=== PATIENT | female | born 1950 | race Caucasian/White ===

== ENCOUNTER 2016-06-20 06:59 | Day surgery (SDC) | payer MEDICARE ==
[2016-06-17 12:01] LABS: APPEARANCE,URINE CLEAR; BILIRUBIN,URINE NEGATIVE (NEGATIVE); GLUCOSE, URINE NEGATIVE (NEGATIVE); KETONES,URINE NEGATIVE (NEGATIVE); LEUKOCYTE ESTERASE,URINE TRACE (NEGATIVE); NITRITE,URINE NEGATIVE (NEGATIVE); PROTEIN,URINE NEGATIVE (NEGATIVE); URINE SPECIFIC GRAVITY 1.009; UROBILINOGEN,URINE NEGATIVE mg/dL (<2.0)
[2016-06-17 12:13] LABS: HEMATOCRIT 40.9 % (36.0-47.0); HEMOGLOBIN 13.1 g/dL (12.0-15.5); HGB HCT DIFFERENCE -1.6; MEAN CORPUSCULAR HEMOGLOBIN 25.7 pg (27.0-33.4); MEAN CORPUSCULAR HGB CONC 32.1 g/dL (32.0-36.0); MEAN CORPUSCULAR VOLUME 80 fl (80-97); RED BLOOD COUNT 5.12 10^6/uL (3.72-5.28); RED CELL DISTRIBUTION WIDTH 14.7 % (11.5-14.0); WHITE BLOOD COUNT 7.5 10^3/uL (4.0-10.5)
--- NOTE | 2016-06-17 15:50 | EKG REPORT ---
SEVERITY:- ABNORMAL ECG - SINUS RHYTHM NONSPECIFIC INTRAVENTRICULAR CONDUCTION DELAY LEFT VENTRICULAR HYPERTROPHY : Confirmed by: Juan M Day 17-Jun-2016 15:49:54
[~2016-06-20 06:59] MED LIST: CEFAZOLIN SODIUM 1 GM in DEXTROSE 5%-WATER 50 ML IV PRN; IBUPROFEN 800 MG TABLET PO PRN; LACTATED RINGERS 1000 ML IV PRN; LIDOCAINE 0.5% INJ-PF (5 MG/ML) 50 ML SDV SUBCUT PRN; OXYCODONE-ACETAMINOPHEN 5-325 MG TABLET PO PRN
[2016-06-20] MEDS ORDERED: FENTANYL CITRATE INJ/PF 100 MCG/2 ML AMPUL ONE ×2 (08:12→10:02)
[2016-06-20] MEDS ORDERED: MIDAZOLAM 2 MG/2 ML INJ ONE (08:12)
[2016-06-20] MEDS ORDERED: PROPOFOL INJ 200 MG/20 ML VIAL IV ONE (08:13)
[2016-06-20] MEDS ORDERED: EPHEDRINE SULFATE INJ 50 MG/1 ML AMPULE ONE (08:13)
[2016-06-20] MEDS ORDERED: DIPHENHYDRAMINE HCL 50 MG/ML VIAL IV PRN (09:22)
[2016-06-20] MEDS ORDERED: MORPHINE SULFATE 10 MG/ML INJ IV PRN (09:22)
[2016-06-20] MEDS ORDERED: PROMETHAZINE HCL INJ 25 MG/1 ML VIAL IV PRN ×2 (09:22)
[2016-06-20] MEDS ORDERED: OXYCODONE-ACETAMINOPHEN 5-325 MG TABLET PO PRN ×4 (09:22→10:08)
[2016-06-20] MEDS ORDERED: FENTANYL CITRATE INJ/PF 100 MCG/2 ML AMPUL IV PRN ×3 (09:22)
[2016-06-20] MEDS ORDERED: MEPERIDINE HCL/PF INJ 25 MG/1 ML DISP.SYRIN IV PRN (09:22)
[2016-06-20] MEDS ORDERED: IBUPROFEN 800 MG TABLET PO PRN (10:08)
--- NOTE | 2016-06-20 10:58 | OPERATIVE REPORT E ---
Operative Report NAME: SHAUN RAI : 1950 AGE: 65Y DATE OF SURGERY: 06/20/2016 ROOM: PREOPERATIVE DIAGNOSIS: Pelvic pain, thickened endometrial stripe. POSTOPERATIVE DIAGNOSES: 1. Pelvic pain, thickened endometrial stripe. 2. Endometrial polyp. OPERATION: Hysteroscope with MyoSure. SURGEON: TATIANNA PARDO M.D. ANESTHESIA: Dr. *------* with general. FINDINGS: A large elongated endometrial polyp that was benign in appearance, extruding through the length of the endometrial canal and somewhat down the cervical canal. The patient had a uterovaginal prolapse of approximately grade 3 when relaxed. Several external hemorrhoids were present around the rectum. COMPLICATIONS: None. ESTIMATED BLOOD LOSS: About 10 mL. SPECIMENS REMOVED: Endometrial curettings. PROCEDURE IN DETAIL: Patient was taken to the operating room, prepared and draped in the normal sterile fashion in the dorsal lithotomy position under sterile conditions. An in-and-out catheter was performed with approximately 100 mL of clear urine obtained. The prolapse was noted at the beginning of the case. A sterile speculum was placed into the vagina and the cervix was prepped with Betadine and grasped on the anterior lip with a single-tooth tenaculum. The uterus was then sounded for approximately 6.5 cm, and the cervix was then dilated to 7 mm, and the MyoSure hysteroscope was introduced with the above findings noted. The MyoSure was then introduced through the scope and the MyoSure was used to remove the endometrial polyp as well as get a good endometrial sampling of the remaining endometrium. There was no fluid deficit afterwards and actually there was a positive 300 fluid return rather than a deficit. The MyoSure was completed until at least 90 percent of the polyp was removed at the base, and the specimen was passed off the field. The MyoSure hysteroscope was removed without difficulty. All instruments were removed from patient's vagina. Patient tolerated procedure well. Sponge, lap and needle counts were correct x2, and the patient was taken to recovery in stable condition. DICTATING PHYSICIAN: TATIANNA PARDO M.D. [id number] PHY#: [id number] ID: [id number] JOB#: [id number] ACCT: [id number] cc:TATIANNA PARDO M.D. >
[2016-06-20] MEDS ORDERED: MORPHINE SULFATE 10 MG/ML INJ IM PRN (11:00)
[2016-06-20 12:00] VITALS: BP 149/83
[2016-06-20] MEDS ORDERED: LIDOCAINE 2% INJ-PF (20 MG/ML) 10 ML AMPUL ONE (12:44)
[2016-06-20] MEDS ORDERED: METOCLOPRAMIDE HCL INJ/PF 10 MG/2 ML SDV ONE (12:44)
[2016-06-20] MEDS ORDERED: DEXAMETHASONE SOD PHOSPHATE INJ 4 MG/1 ML VIAL ONE (12:44)
[2016-06-20] MEDS ORDERED: ONDANSETRON HCL INJ/PF 4 MG/2 ML SDV ONE (12:44)
[2016-06-20] MEDS ORDERED: SUCCINYLCHOLINE CHLORIDE INJ 200 MG/10 ML VIAL ONE (12:44)
== END 2016-06-20 12:00 | disposition home or self-care (01) ==
LOC: OROUT 06:59
PROVIDERS: ATTEND Obstetrics & Gynecology
PROC: 0UB98ZX Excision of Uterus, Via Natural or Artificial Opening Endoscopic, Diagnostic (ICD-10-PCS; principal; 2016-06-20 09:00)
DX: N84.0 Polyp of corpus uteri (principal); N81.4 Uterovaginal prolapse, unspecified; K44.9 Diaphragmatic hernia without obstruction or gangrene; R10.2 Pelvic and perineal pain; Z79.899 Other long term (current) drug therapy
CPT/HCPCS: 93005; 36415 ×2; 84132; 85027; 81001; 88305 ×2; 93010; 58558; J2250; J0690; A9270; J1100; J3490 ×2; J3010; J2765; J0330; J2405; J2704; 952

== ENCOUNTER → 2016-11-22 | Day surgery (SDC) | payer MEDICARE ==
[2016-11-21 10:51] LABS: HEMATOCRIT 39.6 % (36.0-47.0); HEMOGLOBIN 13.4 g/dL (12.0-15.5); HGB HCT DIFFERENCE 0.6; MEAN CORPUSCULAR HEMOGLOBIN 26.9 pg (27.0-33.4); MEAN CORPUSCULAR HGB CONC 33.8 g/dL (32.0-36.0); MEAN CORPUSCULAR VOLUME 80 fl (80-97); RED BLOOD COUNT 4.97 10^6/uL (3.72-5.28); RED CELL DISTRIBUTION WIDTH 13.7 % (11.5-14.0); WHITE BLOOD COUNT 7.9 10^3/uL (4.0-10.5)
[2016-11-21 10:59] LABS: APPEARANCE,URINE CLEAR; BILIRUBIN,URINE NEGATIVE (NEGATIVE); GLUCOSE, URINE NEGATIVE (NEGATIVE); KETONES,URINE NEGATIVE (NEGATIVE); LEUKOCYTE ESTERASE,URINE MODERATE (NEGATIVE); NITRITE,URINE NEGATIVE (NEGATIVE); PROTEIN,URINE NEGATIVE (NEGATIVE); URINE SPECIFIC GRAVITY 1.016; UROBILINOGEN,URINE NEGATIVE mg/dL (<2.0)
[2016-11-21 11:03] LABS: MAGNESIUM 2.1 mg/dL (1.6-2.3); PHOSPHORUS 3.8 mg/dL (2.5-4.5)
[2016-11-21 11:04] LABS: ALANINE AMINOTRANSFERASE 35 U/L (9-52); ALBUMIN 4.2 g/dL (3.5-5.0); ALKALINE PHOSPHATASE 112 U/L (38-126); ANION GAP 12 (5-19); ASPARTATE AMINO TRANSFERASE 23 U/L (14-36); BILIRUBIN,DIRECT 0.3 mg/dL (0.0-0.4); BILIRUBIN,TOTAL 0.5 mg/dL (0.2-1.3); BLOOD UREA NITROGEN 14 mg/dL (7-20); CALCIUM 9.9 mg/dL (8.4-10.2); CARBON DIOXIDE 29 mmol/L (22-30); CHLORIDE 102 mmol/L (98-107); CREATININE RESULT 0.82 mg/dL (0.52-1.25); GLUCOSE 113 mg/dL (75-110); POTASSIUM 4.1 mmol/L (3.6-5.0); SODIUM 142.9 mmol/L (137-145); TOTAL PROTEIN 7.5 g/dL (6.3-8.2)
--- NOTE | 2016-11-21 21:55 | EKG REPORT ---
SEVERITY:- ABNORMAL ECG - SINUS RHYTHM VENTRICULAR BIGEMINY NONSPECIFIC INTRAVENTRICULAR CONDUCTION DELAY LEFT VENTRICULAR HYPERTROPHY : Confirmed by: Juan M Day 21-Nov-2016 21:54:36
[~2016-11-22] MED LIST changes: +CEFAZOLIN 1 GM/D5W RTU 1 GM/50 ML RTUPB IV PRN; -CEFAZOLIN SODIUM 1 GM in DEXTROSE 5%-WATER 50 ML IV PRN; -IBUPROFEN 800 MG TABLET PO PRN; -OXYCODONE-ACETAMINOPHEN 5-325 MG TABLET PO PRN
--- NOTE | 2016-11-22 08:15 | RADIOLOGY REPORT (SQ) ---
EXAM DESCRIPTION: CHEST SINGLE VIEW COMPLETED DATE/TIME: 11/22/2016 7:50 am REASON FOR STUDY: pre-operative COMPARISON: 08/25/2013 EXAM PARAMETERS: NUMBER OF VIEWS: One view. TECHNIQUE: Single frontal radiographic view of the chest acquired. RADIATION DOSE: NA LIMITATIONS: None. FINDINGS: LUNGS AND PLEURA: No opacities, masses or pneumothorax. No pleural effusion. MEDIASTINUM AND HILAR STRUCTURES: No masses. Contour normal. HEART AND VASCULAR STRUCTURES: Heart normal in size. Normal vasculature. BONES: No acute findings. HARDWARE: None in the chest. OTHER: No other significant finding. IMPRESSION: NO ACUTE RADIOGRAPHIC FINDING IN THE CHEST. TECHNICAL DOCUMENTATION: JOB ID: [id number]
[2016-11-22 08:35] VITALS: BP 156/95
--- NOTE | 2016-11-22 20:56 | EKG REPORT ---
SEVERITY:- ABNORMAL ECG - SINUS RHYTHM LEFT VENTRICULAR HYPERTROPHY : Confirmed by: Juan M Day 22-Nov-2016 20:56:16
--- NOTE | 2016-11-22 21:14 | CONSULTATION REPORT E ---
Consultation Report NAME: SHAUN RAI : 1950 AGE: 66Y DATE: 11/22/2016 TO: GUILLE NOVAK M.D. FROM: Requesting Physician NOTE: The patient's surgery was canceled and, hence, we will make this as an observation consult. REASON FOR CONSULTATION: Patient with frequent PVCs, asymptomatic, for cardiac preprocedure examination for risk assessment for surgery under general anesthesia. HISTORY OF PRESENT ILLNESS: The patient is a pleasant 66-year-old female with known history of hypertension and hyperlipidemia, who is brought in for elective laparoscopic hysterectomy. The patient on the preop EKG was noted to have frequent PVCs. The patient is asymptomatic from this. She has no history of dizziness, palpitations, or syncope or near syncope. There is no history of congestive heart failure, no history of chest pain or discomfort. There is no PND, orthopnea or leg edema. The patient states she is fairly quite active. PAST MEDICAL HISTORY: Positive for history of hypertension. There is no history of congestive heart failure, no history of coronary artery disease, anginal symptoms or MN. There is no history of PND, orthopnea or leg edema. There is no history of asthma or COPD. There is no history of sleep apnea, no history of pulmonary embolism. There is no history of diabetes mellitus, no history of thyroid disease. The patient does have a hyperlipidemia. There is no history of chronic kidney disease. There is no history of TIA or CVA. There is no history of anxiety and depression. ALLERGIES: LOTREL which contains amlodipine and benazepril, the allergy being in the form of dry cough; hence, most likely the patient is allergic to BENAZEPRIL (WALLY inhibitor) causing dry cough. FAMILY HISTORY: Positive for congestive heart failure in her mother. There is no history of coronary artery disease. DISPOSITION: The patient is a FULL CODE. Her son is her surrogate healthcare decision maker. SOCIAL HISTORY: The patient does not smoke. There is no history of EtOH abuse. PAST SURGICAL HISTORY: Positive for history of cholecystectomy in the remote past. HOME MEDICATIONS: 1. Simvastatin 20 mg p.o. nightly. 2. Aspirin 325 mg p.o. daily. 3. Losartan/hydrochlorothiazide 100/12.5 once daily. 4. Ranitidine 150 mg p.o. b.i.d. REVIEW OF SYSTEMS: CONSTITUTIONAL: Denies any fever, chills or rigors. There is no fatigue or weakness. HEENT: Head: Denies any dizziness and head injury or headaches. Eyes: No history of amblyopia or diplopia. No history of amaurosis fugax. Ears: No history of hearing loss, no history of tinnitus, no history of recurrent ear infections, no vertigo. Nose: No history of hay fever. No history of nosebleeds. No history of nasal polyps. Mouth: No history of altered taste sensation, no history of ulcers in the mouth, no bleeding from the gums. Throat: There is no odynophagia or dysphagia, no history of recurrent sore throats. SKIN: There is no history of psoriasis. No history of yellowish discoloration of the skin. No history of skin cancer. No history of psoriasis. NECK: No painful or painless neck swelling, no goiter, no symptoms of C-spine arthritis. LUNGS: No history of asthma or COPD. No history of pulmonary embolism. No history of hemoptysis or pleuritic chest pain. No history of cough or wheezing or sputum production. No history of sleep apnea. CARDIAC: History of hypertension, well controlled as per patient. No history of coronary artery disease. No history of MN or anginal symptoms. No history of congestive heart failure. No history of leg edema. No history of palpitations although her EKG yesterday shows PVCs although there are no PVCs on her EKG today. She has no history of near syncope, dizziness or palpitations. No history of syncope. No history of sudden . No history of PND, orthopnea or leg edema. GASTROINTESTINAL: History of GERD controlled with ranitidine. No history of GI bleed. No history of altered bowel movements. No history of fatty food intolerance. No history of cirrhosis of the liver. No history of jaundice. No abdominal pain. GENITOURINARY: History of prolapse of the uterus. Patient for laparoscopic hysterectomy. RENAL: No history of chronic kidney disease. No history of hematuria, polyuria or dysuria. No symptoms of UTI. ENDOCRINE: No history of diabetes mellitus type. No history of thyroid disease. No history of polydipsia or polyuria. No history of heat or cold intolerance. No history of hirsutism. No history of excessive sweating. CENTRAL NERVOUS SYSTEM: No history of TIA or CVA. No history of headaches, migraines or seizures. No history of gait imbalance. PSYCHIATRIC: No history of anxiety or depression. No history of suicidal ideation. No history of homicidal ideation. VASCULAR: No history of calf or buttock claudication. No history of DVT. MUSCULOSKELETAL: Denies arthritis or collagen vascular disease. HEMATOLOGICAL: No history of bleeding diathesis. No history of clotting disorders. PHYSICAL EXAMINATION: GENERAL: Patient is mildly obese in no acute distress. She is well groomed. VITAL SIGNS: She is afebrile with a temperature of 98.3 degrees Fahrenheit. Pulse is 81 beats per minute. Blood pressure is 156/95, respirations 16 per minute, 02 sats are 98% on room air. HEENT: Head is atraumatic, normocephalic. Eyes: Pupils are equal, round, regular, reactive to light and accommodation. Extraocular movements are normal. There is no conjunctival pallor. There is no scleral icterus. Ears: Tympanic membranes are intact. External auditory canals are clear. Nose: There is no deviated nasal septum. There is no inflammation of the nasal mucous membranes. There are no nasal polyps. Mouth: Mucous membranes of the mouth are moist. Tongue is moist. There are no ulcers. There is no bleeding from the gums. There are no ulcers in the mouth. Throat: There is no redness of the oropharynx. There are no exudates. SKIN: There are no skin rashes. There is no petechia or ecchymosis. There are no skin lesions. NECK: Supple. There is no JVD. There is no lymphadenopathy. Carotids are equal. There is no bruit. There is no goiter. Trachea is central. LUNGS: Clear to auscultation and percussion. There is no chest wall tenderness. HEART: S1 and S2 are heard. There is no S3 gallop. There is no S4 gallop. There is a systolic murmur in the left sternal border and the apex. There is no rub. ABDOMEN: Soft, slightly obese, nontender. There is no hepatosplenomegaly. Bowel sounds are well heard. There are no tender areas or masses. There is rebound, guarding or rigidity. EXTREMITIES: Femorals are slightly deep. Femorals are slightly diminished. There are no femoral bruits. Leg pulses are well felt. There is no pedal edema. There is no DVT or cellulitis. There is no cyanosis or clubbing. There is no calf tenderness. CENTRAL NERVOUS SYSTEM: The patient is conscious, awake, alert, oriented x3 with no focal deficits. PSYCHIATRIC: The patient's judgment and insight are intact. Her affect is normal. DIAGNOSTIC TEST RESULTS: The patient's white count yesterday was 7900, hemoglobin was 13.4, hematocrit is 39.6, and the platelet count is 319,000. The patient's sodium is 142.9, potassium 4.1, chloride 102, CO2 is 29. The patient's BUN is 14, creatinine is 0.82, GFR is greater than 60, glucose is 113, her calcium is 9.9. Her liver function tests are normal. Her phosphorus was 3.8, her magnesium is 2.1, albumin is 4.2, total protein is 7.5. Her EKG shows done yesterday shows sinus rhythm, ventricular bigeminy, and left ventricular hypertrophy. Her EKG done today shows sinus rhythm and LVH. No acute changes. IMPRESSION: 1. Cardiac arrhythmia/PVCs, asymptomatic. The patient is low risk in view of lack of anginal symptoms, lack of symptoms, lack of sudden and lack of symptoms suggestive of congestive heart failure and presently the patient does not appear to be in heart failure by physical exam. 2. Hypertension. 3. Hyperlipidemia. 4. Patient for hysterectomy under general anesthesia for prolapse of the uterus. 5. Preoperative cardiovascular risk assessment. RECOMMENDATIONS: The patient from the cardiac [id number] would be a low (acceptable) risk for this surgery under general anesthesia. Would monitor the patient postop. Will follow the patient with you. Discussed with the attending physician on the case, that is, Dr. Smith. Thanking you. DICTATING PHYSICIAN: GUILLE NOVAK M.D. [id number] PHY#: [id number] ID: [id number] JOB#: [id number] ACCT: [id number] cc:GUILLE NOVAK M.D. >
== END ==
LOC: OROUT 07:18
PROVIDERS: ATTEND Obstetrics & Gynecology
DX: Z01.810 Encounter for preprocedural cardiovascular examination (principal); Z53.8 Procedure and treatment not carried out for other reasons; I49.3 Ventricular premature depolarization; I10 Essential (primary) hypertension; E87.5 Hyperkalemia; Z88.8 Allergy status to other drugs, medicaments and biological substances; Z82.49 Family history of ischemic heart disease and other diseases of the circulatory system; Z79.82 Long term (current) use of aspirin; Z79.899 Other long term (current) drug therapy; K21.9 Gastro-esophageal reflux disease without esophagitis
CPT/HCPCS: 36415; 71010; 80053; 81001; 83735; 84100; 85027; 86850; 86900; 86901; 93005; 93010

== ENCOUNTER → 2016-12-04 | Outpatient (CLI) | payer MEDICARE ==
[~2016-12-04] MED LIST changes: -CEFAZOLIN 1 GM/D5W RTU 1 GM/50 ML RTUPB IV PRN; -LACTATED RINGERS 1000 ML IV PRN; -LIDOCAINE 0.5% INJ-PF (5 MG/ML) 50 ML SDV SUBCUT PRN; +REGADENOSON INJ 0.4 MG/5 ML DISP.SYRIN IV ONE
--- NOTE | 2016-12-04 20:06 | DRAGON STRESS TEST REPORT ---
Intravenous Lexiscan Cardiolite stress test using single photon emmision comput. Erized tomography. Date of procedure: 12/04/2016. Ordering Provider: Dr. Sammi Villafana. Patient's status: O utpatient. Indicat ion: Abnormal EKG., PVCs., And preoperative cardiac risk assessment.. Coronary risk factors: Age, hypertension, and dyslipidemia. Resting EKG: S inus Rhythm.PVC's. Stress EKG: No changes of ischemia. The patient had no chest pain or discomfort, there are no arrhythmias seen Reason for termination: Protocol. Conclusions: Normal EKG and hemodynamic response to IV Lexiscan. Nuclear data: At rest the patient was given 12.38 1.01 millicuries of technetium 99m sestamibi injected intravenously. As per protocol rest non gated SPECT images were obtained. Subsequently the patient was given intravenous Lexiscan at a dose of 0.4 mg in 5 mL intravenously, followed by flush with normal saline. Subsequently the stress dose of 36.7 millicuries of technetium 99m sestamibi was injected intravenously. As per protocol stress gated images were obtained. Nuclear interpretation: Review of images showed that all segments of the myocardium had normal perfusion at rest, and normal perfusion post stress with IV Lexiscan. All segments of the myocardium had normal motion, contraction, and thickening by gated study. T. I D. ratio was normal at . Computer read rest, and stress left ventricular ejection fraction were 62 %, and 59 %, respectively. Conclusion: 1. There is no scintigraphic evidence of Lexiscan induced myocardial ischemia. 2. There is no scintigraphic evidence of myocardial infarction/scar. Recommendations: Aggressive risk factor modification, and treating the underlying co- morbidities. MTDD
== END ==
LOC: RAD 07:05
PROVIDERS: ATTEND Specialist
DX: I49.9 Cardiac arrhythmia, unspecified (principal)
CPT/HCPCS: 93017; 78452; A9500; J2785; Q9969

== ENCOUNTER → 2016-12-05 | Outpatient (CLI) | payer MEDICARE ==
--- NOTE | 2016-12-05 13:29 | XCELERA REPORT ---
[address] [address] Transthoracic Echocardiogram Report Name: SHAUN RAI Age: 66 yrs Gender: Female : 1950 Patient Status: Preadmit Patient Location: Study Date: 12/05/2016 10:09 AM Height: 63 in Weight: 170 lb BSA: 1.8 m2 Procedure: A two-dimensional transthoracic echocardiogram with color flow and Doppler was performed. Study Quality: Fair. Reason For Study: CARDIAC ARRHYTHMIA / PRE_OPERATIVE CARDIAC EXAM History: CARDIAC ARRHYTHMIA / PRE_OPERATIVE CARDIAC EXAM. Ordering Physician: SAMMI NOVAK Performed By: Nika Jay Interpretation Summary The left ventricle is normal in size. There is normal left ventricular wall thickness. Left ventricular systolic function is normal. LV EF is 80% Doppler measurements suggest impaired left ventricular relaxation, which is associated with grade I/IV or mild diastolic dysfunction The left ventricular wall motion is normal. The right ventricle is normal in size and function. The right atrium is normal. The left atrial size is normal. There is no evidence of mitral valve prolapse. There is no mitral valve stenosis. There is a mild amount of mitral regurgitation There is no aortic valve stenosis There is no LVOT obstruction. No aortic regurgitation is present. There is no tricuspid stenosis. There is a trace amount of tricuspid regurgitation Right ventricular systolic pressure is normal. RVSP s 29 mm of Hg , with RA mean of 5. There is a trace amount of pulmonic regurgitation There is no pulmonic valvular stenosis. There is no pericardial effusion. MMode/2D Measurements \T\ Calculations RVDd: 2.2 cm LVIDd: 4.9 cm FS: 28.9 % Ao root diam: 2.7 cm IVSd: 0.95 cm LVIDs: 3.5 cm EDV(Teich): 111.9 ml LVPWd: 0.94 cmESV(Teich): 50.0 ml Ao root area: 5.6 cm2 EF(Teich): 55.3 % LA dimension: 3.4 cm LVOT diam: 1.7 cm LVOT area: 2.3 cm2 Doppler Measurements \T\ Calculations MV E max mallory: MV P1/2t max mallory: Ao V2 max: LV V1 max P.7 cm/sec 59.7 cm/sec 178.0 cm/sec 5.9 mmHg MV A max mallory: MV P1/2t: 53.9 msec Ao max PG: LV V1 max: 85.9 cm/sec MVA(P1/2t): 4.1 cm2 12.7 mmHg 121.5 cm/sec MV E/A: 0.70 MV dec slope: ABDI(V,D): 1.6 cm2 324.3 cm/sec2 PA V2 max: PI end-d mallory: TR max mallory: 92.8 cm/sec 114.0 cm/sec 244.3 cm/sec PA max PG: TR max P.4 mmHg 23.9 mmHg Left Ventricle The left ventricle is normal in size. There is normal left ventricular wall thickness. Left ventricular systolic function is normal. LV EF is 80%. Doppler measurements suggest impaired left ventricular relaxation, which is associated with grade I/IV or mild diastolic dysfunction. The left ventricular wall motion is normal. There is no thrombus. Right Ventricle The right ventricle is normal in size and function. Atria The right atrium is normal. The left atrial size is normal. Mitral Valve There is no evidence of mitral valve prolapse. There is no vegetation seen on the mitral valve. There is no mitral valve stenosis. There is a mild amount of mitral regurgitation. Aortic Valve The aortic valve is trileaflet. The aortic valve opens well. There is no aortic valvular vegetation. There is no aortic valve stenosis. There is no LVOT obstruction. No aortic regurgitation is present. Tricuspid Valve There is no tricuspid stenosis. There is a trace amount of tricuspid regurgitation. Right ventricular systolic pressure is normal. RVSP s 29 mm of Hg , with RA mean of 5. Pulmonic Valve There is no pulmonic valvular stenosis. There is a trace amount of pulmonic regurgitation. Great Vessels The aortic root is normal size. Effusions There is no pericardial effusion. : SAMMI NOVAK > Sammi Novak
== END ==
LOC: SP 09:58
PROVIDERS: ATTEND Specialist
DX: I49.9 Cardiac arrhythmia, unspecified (principal)
CPT/HCPCS: 93306

== ENCOUNTER 2017-01-30 05:27 | Day surgery (SDC) | payer MEDICARE ==
[2017-01-21 11:05] LABS: HEMATOCRIT 39.1 % (36.0-47.0); HEMOGLOBIN 13.5 g/dL (12.0-15.5); HGB HCT DIFFERENCE 1.4; MEAN CORPUSCULAR HEMOGLOBIN 27.5 pg (27.0-33.4); MEAN CORPUSCULAR HGB CONC 34.5 g/dL (32.0-36.0); MEAN CORPUSCULAR VOLUME 80 fl (80-97); RED BLOOD COUNT 4.92 10^6/uL (3.72-5.28); RED CELL DISTRIBUTION WIDTH 14.3 % (11.5-14.0); WHITE BLOOD COUNT 6.2 10^3/uL (4.0-10.5)
[2017-01-21 11:07] LABS: APPEARANCE,URINE CLEAR; BILIRUBIN,URINE NEGATIVE (NEGATIVE); GLUCOSE, URINE NEGATIVE (NEGATIVE); KETONES,URINE NEGATIVE (NEGATIVE); LEUKOCYTE ESTERASE,URINE TRACE (NEGATIVE); NITRITE,URINE NEGATIVE (NEGATIVE); PROTEIN,URINE NEGATIVE (NEGATIVE); URINE SPECIFIC GRAVITY 1.005; UROBILINOGEN,URINE NEGATIVE mg/dL (<2.0)
[2017-01-21 11:30] LABS: ALANINE AMINOTRANSFERASE 37 U/L (9-52); ALBUMIN 4.5 g/dL (3.5-5.0); ALKALINE PHOSPHATASE 112 U/L (38-126); ANION GAP 10 (5-19); ASPARTATE AMINO TRANSFERASE 28 U/L (14-36); BILIRUBIN,DIRECT 0.4 mg/dL (0.0-0.4); BILIRUBIN,TOTAL 0.6 mg/dL (0.2-1.3); BLOOD UREA NITROGEN 16 mg/dL (7-20); CALCIUM 10.6 mg/dL (8.4-10.2); CARBON DIOXIDE 29 mmol/L (22-30); CHLORIDE 104 mmol/L (98-107); CREATININE RESULT 0.79 mg/dL (0.52-1.25); GLUCOSE 114 mg/dL (75-110); POTASSIUM 4.6 mmol/L (3.6-5.0); SODIUM 142.7 mmol/L (137-145); TOTAL PROTEIN 7.8 g/dL (6.3-8.2)
[~2017-01-30 05:27] MED LIST changes: +CEFAZOLIN 1 GM/D5W RTU 1 GM/50 ML RTUPB IV PRN; +LACTATED RINGERS 1000 ML IV PRN; +LIDOCAINE 0.5% INJ-PF (5 MG/ML) 50 ML SDV SUBCUT PRN; -REGADENOSON INJ 0.4 MG/5 ML DISP.SYRIN IV ONE
[2017-01-30] MEDS ORDERED: LIDOCAINE 2% INJ-PF (20 MG/ML) 10 ML AMPUL ONE (06:47)
[2017-01-30] MEDS ORDERED: MIDAZOLAM 2 MG/2 ML INJ ONE (06:47)
[2017-01-30] MEDS ORDERED: DEXAMETHASONE SOD PHOSPHATE INJ 4 MG/1 ML VIAL ONE (06:47)
[2017-01-30] MEDS ORDERED: FENTANYL CITRATE INJ/PF 250 MCG/5 ML AMPULE ONE (06:47)
[2017-01-30] MEDS ORDERED: ONDANSETRON HCL INJ/PF 4 MG/2 ML SDV ONE (06:47)
[2017-01-30] MEDS ORDERED: ACETAMINOPHEN 100 ML IV ONE ×3 (06:48→17:30)
[2017-01-30] MEDS ORDERED: PROPOFOL INJ 200 MG/20 ML VIAL IV ONE (06:48)
[2017-01-30] MEDS ORDERED: EPHEDRINE SULFATE INJ 50 MG/1 ML AMPULE ONE (06:49)
[2017-01-30] MEDS ORDERED: LIDOCAINE 1% INJ-PF (10 MG/ML) 30 ML SDV ONE (07:20)
[2017-01-30] MEDS ORDERED: OXYCODONE-ACETAMINOPHEN 5-325 MG TABLET PO PRN ×2 (09:00)
[2017-01-30] MEDS ORDERED: ONDANSETRON HCL INJ/PF 4 MG/2 ML SDV IV PRN (09:00)
[2017-01-30] MEDS ORDERED: MEPERIDINE HCL/PF INJ 25 MG/1 ML DISP.SYRIN IV PRN (09:00)
[2017-01-30] MEDS ORDERED: FENTANYL CITRATE INJ/PF 100 MCG/2 ML AMPUL IV PRN ×3 (09:00)
[2017-01-30] MEDS ORDERED: DIPHENHYDRAMINE HCL 50 MG/ML VIAL IV PRN (09:00)
[2017-01-30] MEDS ORDERED: PROMETHAZINE HCL INJ 25 MG/1 ML VIAL IV PRN ×2 (09:00)
[2017-01-30] MEDS ORDERED: MORPHINE SULFATE 10 MG/ML INJ IV PRN (09:00)
[2017-01-30] MEDS ORDERED: BUPIVACAINE HCL 0.5%-EPI 1:200000 INJ/PF 30 ML VIAL ONE (09:04)
[2017-01-30] MEDS ORDERED: SUCCINYLCHOLINE CHLORIDE INJ 200 MG/10 ML VIAL ONE ×2 (09:54→14:57)
[2017-01-30] MEDS ORDERED: ESTROGENS,CONJUGATED 0.625 MG/1 GM 30 GM TUBE PV ONE (10:00)
[2017-01-30] MEDS: FENTANYL CITRATE INJ/PF 100 MCG/2 ML AMPUL ONE ×2 (10:42→10:47)
--- NOTE | 2017-01-30 11:13 | OPERATIVE REPORT E ---
Operative Report NAME: SHAUN RAI : 1950 AGE: 66Y DATE OF SURGERY: 01/30/2017 ROOM: PREOPERATIVE DIAGNOSIS: Pelvic pain, uterovaginal prolapse, posterior vaginal prolapse. POSTOPERATIVE DIAGNOSIS: Pelvic pain, uterovaginal prolapse, posterior vaginal prolapse. PROCEDURE: Robotic-assisted total laparoscopic hysterectomy with bilateral salpingo-oophorectomy and posterior vaginal repair. SURGEON: TATIANNA PARDO M.D. ANESTHESIA: Dr. Benavidez with general. FINDINGS: A 10-week uterus, grade 3 prolapse of the posterior vagina. COMPLICATIONS: None. ESTIMATED BLOOD LOSS: 100 mL. SPECIMENS REMOVED: Uterus, fallopian tubes and ovaries. PROCEDURE IN DETAIL: Patient was taken to the operating room, prepared and draped in a normal sterile fashion in a dorsal lithotomy position. Under sterile conditions a Cordero catheter was placed to gravity. The sterile speculum was then placed into the vagina and the cervix was grasped with a single-tooth tenaculum and prepped with Betadine. The cervix was then probed with the uterine sound and found to be 8 cm. The uterus was then dilated to accommodate a medium VCare uterine manipulator which was placed without difficulty. The gloves were changed and attention was then turned to the upper portion of the case where an umbilical skin incision was made to accommodate the GelPOINT. The fascia was transected using Zayas scissors and the peritoneal cavity was entered sharply with the Mayos. The GelPOINT was then placed and the abdomen was insufflated with approximately 2 L of CO2 gas. We initially insufflated to approximately 15 mmHg; however, we backed off after the patient experienced an episode of bradycardia to approximately 10 mmHg. Once the patient stabilized, we again reinflated to approximately 12 mmHg. The patient was placed in steep Trendelenburg and the camera was introduced through the GelPOINT via the camera port with the above findings noted. There were no adhesions noted to be lysed, which was good; however, the amount of uterine prolapse was evident as well as the redundant vaginal tissue was also evident. The two 5 mm ports were placed approximately 10 cm on either side of the umbilicus. The robot was docked and the instruments were placed in the usual fashion using the vessel sealer as well as the monopolar scissors. I then descrubbed and sat at the console where my housekeeper and laundry assistant swept the bowel away using an atraumatic grasper. Beginning with the right ovary as this was the one that was presenting itself more readily, the IP ligament was transected hugging underneath the right ovary using the vessel sealer and this was carried through to the round ligament. The broad ligament was then transected as well and the uterine arteries were located along the body of the uterus and these were transected and coagulated with the vessel sealer with good hemostasis. The bladder flap was created using the monopolar scissors and some blunt dissection. We then turned our attention to the left adnexa and the left adnexa was transected in a similar fashion. The uterine artery again was located on the left and this was transected and coagulated using the vessel sealer and a bladder flap was completed on this side as well. Beginning with the colporrhaphy on the posterior side, it did present itself more readily. The monopolar scissors were used following the VCare that was noticeable through the mucosa. The monopolar scissors were used to transect the vaginal mucosa all the way around the cervix until the specimen was freed and the specimen was then removed. The instruments were then replaced with ProGrasp and Weston Needle Senior Firmware Engineer and the V-Loc needle was introduced by my housekeeper and laundry assistant through the AirSeal. The V-Loc was then used to close the vaginal cuff incorporating the lateral portions of the closure into the remnants of the uterosacral ligaments for support. Once this was completed I then returned to the lower portion of the case and reinspected the patient's anatomy and found that the posterior vagina was still significantly prolapsed so I did decide to proceed with a posterior repair. The anterior aspect of the vagina seemed to be well supported and it did not need any further repair performed. The mucosa of the posterior vagina was injected with 0.5% Marcaine with epinephrine. This was approximately 10 mL done in a vertical fashion in the midline. This was then followed with a scalpel and scored the mucosa. The mucosa was then dissected from the rectal mucosa carefully using Metzenbaums and using more blunt dissection, holding the mucosa away with the Allis. This was completed bilaterally until I felt that I was deep enough to add some support sutures. Support sutures of 2-0 Vicryl were then placed in an interrupted fashion starting at the most superior aspect of the defect and tying these in the midline with 4 sutures placed and good resolution of the enterocele was found. The mucosa was then trimmed and the remaining mucosa was closed with 4-0 Vicryl in a locked fashion. I inspected once more and decided not to do a posterior colporrhaphy as this procedure seemed to resolve the prolapse significantly. I then changed gloves once more and went to the incisions on the upper portion of the case and closed the fascial incision at the umbilicus with 0 Vicryl in a running fashion. The remainder of that suture was used to place 2 interrupted sutures in the subcu. All 3 skin incisions were then closed with 4-0 Vicryl. The patient tolerated the procedure well. Sponge, lap and needle counts were correct x2, and the patient was taken to recovery in stable condition. DICTATING PHYSICIAN: TATIANNA PARDO M.D. [id number] PHY#: [id number] ID: [id number] JOB#: [id number] ACCT: [id number] cc:TATIANNA PARDO M.D. >
[2017-01-30] MEDS ORDERED: (PENDING PHARMACY ID) (Ranitidine Hcl [Ranitidine Hcl] 150 MG) PO PRN (11:57)
[2017-01-30] MEDS ORDERED: FAMOTIDINE 20 MG TABLET PO PRN (12:13)
[2017-01-30] MEDS ORDERED: KETOROLAC TROMETHAMINE INJ/PF 30 MG/1 ML SDV INJ ONE (12:45)
[2017-01-30] MEDS ORDERED: LOSARTAN POTASSIUM 50 MG TABLET PO ONE (13:00)
[2017-01-30] MEDS ORDERED: HYDROCHLOROTHIAZIDE 12.5 MG CAPSULE PO ONE (13:00)
[2017-01-30] MEDS: OXYCODONE-ACETAMINOPHEN 5-325 MG TABLET PO PRN ×2 (13:54→19:35)
[2017-01-30] MEDS ORDERED: GLYCOPYRROLATE INJ 0.4 MG/2 ML VIAL ONE (14:57)
[2017-01-30] MEDS ORDERED: VECURONIUM BROMIDE INJ 10 MG VIAL IV ONE (14:57)
[2017-01-30] MEDS ORDERED: NEOSTIGMINE METHYLSULFATE 10 MG/10 ML VIAL ONE (14:57)
[2017-01-30] MEDS: KETOROLAC TROMETHAMINE INJ/PF 30 MG/1 ML SDV IV SCH (21:59)
[2017-01-30] MEDS ORDERED: (PENDING PHARMACY ID) (Simvastatin [Simvastatin] 20 MG) PO SCH (22:00)
[2017-01-30] MEDS ORDERED: SIMVASTATIN 10 MG TABLET PO SCH (22:00)
[2017-01-31] MEDS: KETOROLAC TROMETHAMINE INJ/PF 30 MG/1 ML SDV IV SCH (05:16)
[2017-01-31 06:37] LABS: HEMATOCRIT 32.6 % (36.0-47.0); HEMOGLOBIN 11.3 g/dL (12.0-15.5); HGB HCT DIFFERENCE 1.3; MEAN CORPUSCULAR HEMOGLOBIN 27.9 pg (27.0-33.4); MEAN CORPUSCULAR HGB CONC 34.7 g/dL (32.0-36.0); MEAN CORPUSCULAR VOLUME 81 fl (80-97); RED BLOOD COUNT 4.04 10^6/uL (3.72-5.28); RED CELL DISTRIBUTION WIDTH 14.4 % (11.5-14.0); WHITE BLOOD COUNT 10.4 10^3/uL (4.0-10.5)
[2017-01-31] MEDS ORDERED: LOSARTAN POTASSIUM 50 MG TABLET PO SCH (10:00)
[2017-01-31] MEDS ORDERED: HYDROCHLOROTHIAZIDE 12.5 MG CAPSULE PO SCH (10:00)
[2017-01-31] MEDS ORDERED: (PENDING PHARMACY ID) (Losartan/Hydrochlorothiazide [Hyzaar 100-12.5 Tablet] 1 EACH) PO SCH (10:00)
[2017-01-31 11:48] VITALS: BP 146/67
[2017-01-31] MEDS ORDERED: IBUPROFEN 800 MG TABLET PO PRN (12:00)
== END 2017-01-31 12:00 | disposition home or self-care (01) ==
LOC: OROUT 05:27 → 2N 11:33 → OROUT 01-31 12:00
PROVIDERS: ATTEND Obstetrics & Gynecology
PROC: 0UT24ZZ Resection of Bilateral Ovaries, Percutaneous Endoscopic Approach (ICD-10-PCS; 2017-01-30)
PROC: 0UT74ZZ Resection of Bilateral Fallopian Tubes, Percutaneous Endoscopic Approach (ICD-10-PCS; 2017-01-30)
PROC: 8E0W4CZ Robotic Assisted Procedure of Trunk Region, Percutaneous Endoscopic Approach (ICD-10-PCS; 2017-01-30)
PROC: 0JQC0ZZ Repair Pelvic Region Subcutaneous Tissue and Fascia, Open Approach (ICD-10-PCS; 2017-01-30)
PROC: 0UT94ZZ Resection of Uterus, Percutaneous Endoscopic Approach (ICD-10-PCS; principal; 2017-01-30 07:30)
PROC: 0UTC4ZZ Resection of Cervix, Percutaneous Endoscopic Approach (ICD-10-PCS; 2017-01-30 07:30)
DX: N81.4 Uterovaginal prolapse, unspecified (principal); N84.0 Polyp of corpus uteri; N72 Inflammatory disease of cervix uteri; D25.9 Leiomyoma of uterus, unspecified; N83.332 Acquired atrophy of left ovary and fallopian tube; N83.331 Acquired atrophy of right ovary and fallopian tube; R10.2 Pelvic and perineal pain; I10 Essential (primary) hypertension; K21.9 Gastro-esophageal reflux disease without esophagitis; Z79.899 Other long term (current) drug therapy; Z88.8 Allergy status to other drugs, medicaments and biological substances
CPT/HCPCS: 57250; 58571; S2900; 36415; 80053; 81001; 840; 84132; 85027; 86850; 86900; 86901; 88307; J0131; J0330; J0690; J1100; J1885; J2250; J2405; J2704; J3010; J3490

== ENCOUNTER → 2017-07-02 | Outpatient (CLI) | payer MEDICARE ==
--- NOTE | 2017-07-02 09:56 | WOMENS IMAGING REPORT ---
EXAM DESCRIPTION: BONE DENSITY HIP/SPINE COMPLETED DATE/TIME: 07/02/2017 9:40 am REASON FOR STUDY: ENCOUNTER SCREENING FOR OSTEOPROSIS; Z13.820 M81.0 AGE-RELATED OSTEOPOROSIS W/O C URRENT PATHOLOGICAL FRAC COMPARISON: None. TECHNIQUE: Dual-Energy X-ray Absorptiometry (DEXA) of the AP Spine and Hip. LIMITATIONS: None. FINDINGS: LUMBAR SPINE: The bone mineral density (BMD) measured from L1-L4 in the AP projection correlates with a T-score of -2.4, which is borderline osteoporotic as defined by the World Health Organization. HIP: The bone mineral density (BMD) measured in the left femoral neck at the hip correlates with a T-score of -1.8, which is osteopenic as defined by the World Health Organization. IMPRESSION: 1. LUMBAR SPINE: Borderline osteoporotic 2. HIP: Osteopenic. COMMENT: The World Health Organization defines low BMD as follows: T-score: Normal: Greater than -1.0 Osteopenia: Between -1.0 and -2.5 Osteoporosis: Less than -2.5 without fractures Established osteoporosis: Less than -2.5 with fractures In general, you may wish to consider: Diagnosis Treatment Follow-up DEXA Normal BMD Prevention 2-3 years Osteopenia Prevention/Therapy 1-2 years Osteoporosis Therapy Yearly TECHNICAL DOCUMENTATION: JOB ID: [id number]- All Rights Reserved
== END ==
LOC: WI 09:25
PROVIDERS: ATTEND Nurse Practitioner
DX: Z13.820 Encounter for screening for osteoporosis (principal); M81.0 Age-related osteoporosis without current pathological fracture
CPT/HCPCS: 77080

== ENCOUNTER → 2017-07-23 | Outpatient (CLI) | payer MEDICARE ==
--- NOTE | 2017-07-25 14:43 | WOMENS IMAGING REPORT ---
EXAM DESCRIPTION: 3D SCREENING MAMMO BILAT COMPLETED DATE/TIME: 07/23/2017 8:01 am REASON FOR STUDY: SCREENING MAMMO Z12.31 ENCNTR SCREEN MAMMOGRAM FOR MALIGNANT NEOPLASM OF REGULO COMPARISON: None. TECHNIQUE: Standard craniocaudal and mediolateral oblique views of each breast recorded using digita l acquisition and breast tomosynthesis. LIMITATIONS: None. FINDINGS: No masses, calcifications or architectural distortion. No areas of suspicion. Read with the assistance of CAD. .[facility] - R2 Cenova Version 1.3 .[facility] Imaging - R2 Cenova Version 1.3 .[facility] - R2 Cenova Version 2.4 .[facility] - R2 Cenova Version 2.4 .[facility] - R2 Field Geologist Version 9.2 IMPRESSION: NORMAL MAMMOGRAM. BIRADS 1. BREAST DENSITY: b. There are scattered areas of fibroglandular density. BIRAD: 1 NEGATIVE RECOMMENDATION: ROUTINE SCREENING COMMENT: The patient has been notified of the results by letter per SA requirements. Additional no tification policies are in place for contacting patient with suspicious or incomplete findings. Quality ID #225: The [employer] recommends an annual screening mammogram for women aged 40 years or over. This facility utilizes a reminder system to ensure that all patients receive reminder letters, and/or direct phone calls for appointments. This includes reminders for routine scr eening mammograms, diagnostic mammograms, or other Breast Imaging Interventions when appropriate. Th is patient will be placed in the appropriate reminder system. The [employer] (ACR) has developed recommendations for screening MRI of the breast s in certain patient populations, to be used in conjunction with mammography. Breast MRI surveillanc e may be appropriate for women with more than 20% lifetime risk of developing breast cancer as deter mined by genetic testing, significant family history of the disease, or history of mantle radiation f or Hodgkins Disease. ACR Practice Guidelines 2008. DBT Technology DBT is a type of tomographic mammography. With conventional mammography, overlapping breast tissue ma y make lesions difficult to detect, even with good compression. DBT uses an x-ray tube that rotates a round the breast, taking images at different angles. These images are then combined to create thin sl ices of the breast that the radiologist can view as a 3D reconstruction. The [employer] unit can perform full-field digital mammograms (2D imaging); or DBT (3D imaging); or both, in a combination mode that quickly performs both the mammogram and the tomosynthesis scan while the breast is still compressed. PQRS 6045F: Fluoroscopic imaging is not utilized for breast tomosynthesis. TECHNICAL DOCUMENTATION: FINDING NUMBER: (1) ASSESSMENT: (1) JOB ID: [id number] [employer]- All Rights Reserved Reading location - IP/workstation name: [email or web address]
== END ==
LOC: WI 07:40
PROVIDERS: ATTEND Physician Assistant
DX: Z12.31 Encounter for screening mammogram for malignant neoplasm of breast (principal)
CPT/HCPCS: 77063; 77067

== ENCOUNTER → 2018-07-24 | Outpatient (CLI) | payer MEDICARE ==
--- NOTE | 2018-07-24 10:18 | WOMENS IMAGING REPORT ---
EXAM DESCRIPTION: BILAT SCREENING MAMMO W/CAD COMPLETED DATE/TIME: 07/24/2018 10:09 am REASON FOR STUDY: ROUTINE BILATERAL SCREENING,Z12.31 Z12.31 ENCNTR SCREEN MAMMOGRAM FOR MALIGNANT N EOPLASM OF REGULO COMPARISON: 2017 TECHNIQUE: Standard craniocaudal and mediolateral oblique views of each breast recorded using [employer] l acquisition. LIMITATIONS: None. FINDINGS: No masses, calcifications or architectural distortion. No areas of suspicion. Read with the assistance of CAD. .[facility] - R2 Cenova Version 1.3 .[facility] Imaging - R2 Cenova Version 2.1 .[facility] Imaging - R2 Cenova Version 2.4 .[facility] - R2 Cenova Version 2.4 .[facility] - R2 Boat Rigger Version 9.2 IMPRESSION: NORMAL MAMMOGRAM. BIRADS 1. BREAST DENSITY: b. There are scattered areas of fibroglandular density. BIRAD: 1 NEGATIVE RECOMMENDATION: ROUTINE SCREENING COMMENT: The patient has been notified of the results by letter per SA requirements. Additional no tification policies are in place for contacting patient with suspicious or incomplete findings. Quality ID #225: The [employer] recommends an annual screening mammogram for women aged 40 years or over. This facility utilizes a reminder system to ensure that all patients receive reminder letters, and/or direct phone calls for appointments. This includes reminders for routine scr eening mammograms, diagnostic mammograms, or other Breast Imaging Interventions when appropriate. Th is patient will be placed in the appropriate reminder system. The [employer] (ACR) has developed recommendations for screening MRI of the breast s in certain patient populations, to be used in conjunction with mammography. Breast MRI surveillanc e may be appropriate for women with more than 20% lifetime risk of developing breast cancer as deter mined by genetic testing, significant family history of the disease, or history of mantle radiation f or Hodgkins Disease. ACR Practice Guidelines 2008. TECHNICAL DOCUMENTATION: FINDING NUMBER: (1) ASSESSMENT: (1) JOB ID: [id number] [employer]- All Rights Reserved Reading location - IP/workstation name: [email or web address]
== END ==
LOC: WI 09:56
PROVIDERS: ATTEND Physician Assistant Medical
DX: Z12.31 Encounter for screening mammogram for malignant neoplasm of breast (principal)
CPT/HCPCS: 77067

== ENCOUNTER 2018-12-10 09:56 | Inpatient (IN) | payer MEDICARE, MEDICAID ==
[2018-12-04 10:07] LABS: HEMATOCRIT 38.5 % (36.0-47.0); MEAN CORPUSCULAR HEMOGLOBIN 26.7 pg (27.0-33.4); MEAN CORPUSCULAR HGB CONC 33.8 g/dL (32.0-36.0); MEAN CORPUSCULAR VOLUME 79 fl (80-97); PLATELET COUNT 268 10^3/uL (150-450); RED BLOOD COUNT 4.88 10^6/uL (3.72-5.28); RED CELL DISTRIBUTION WIDTH 14.8 % (11.5-14.0); WHITE BLOOD COUNT 5.7 10^3/uL (4.0-10.5)
[2018-12-04 10:47] LABS: APPEARANCE,URINE SLIGHTLY-CLOUDY; BILIRUBIN,URINE NEGATIVE (NEGATIVE); COLOR,URINE YELLOW; GLUCOSE, URINE NEGATIVE (NEGATIVE); KETONES,URINE NEGATIVE (NEGATIVE); LEUKOCYTE ESTERASE,URINE NEGATIVE (NEGATIVE); NITRITE,URINE NEGATIVE (NEGATIVE); PROTEIN,URINE NEGATIVE (NEGATIVE); URINE SPECIFIC GRAVITY 1.011; UROBILINOGEN,URINE NEGATIVE mg/dL (<2.0)
[2018-12-10] MEDS ORDERED: CEFAZOLIN 1 GM/D5W RTU 1 GM/50 ML RTUPB IV ONE (10:14)
[2018-12-10] MEDS ORDERED: MIDAZOLAM 2 MG/2 ML INJ ONE (10:47)
[2018-12-10] MEDS ORDERED: HYDROMORPHONE HCL INJ/PF 2 MG/ML AMPULE ONE ×2 (10:47→13:53)
[2018-12-10] MEDS ORDERED: PROPOFOL INJ 200 MG/20 ML VIAL IV ONE (10:47)
[2018-12-10] MEDS ORDERED: FENTANYL CITRATE INJ/PF 100 MCG/2 ML AMPUL ONE (10:47)
[2018-12-10] MEDS ORDERED: PHENYLEPHRINE HCL INJ/PF 10 MG/1 ML SDV ONE (12:00)
[2018-12-10] MEDS ORDERED: LIDOCAINE 1%/EPINEPHRINE INJ 20 ML VIAL ONE (12:00)
[2018-12-10] MEDS ORDERED: ONDANSETRON HCL INJ/PF 4 MG/2 ML SDV ONE (12:00)
[2018-12-10] MEDS ORDERED: ROCURONIUM BROMIDE INJ 50 MG/5 ML VIAL IV ONE (12:00)
[2018-12-10] MEDS ORDERED: DEXAMETHASONE SOD PHOSPHATE INJ 4 MG/1 ML VIAL ONE (12:00)
[2018-12-10] MEDS ORDERED: SUCCINYLCHOLINE CHLORIDE INJ 200 MG/10 ML VIAL ONE (12:00)
[2018-12-10] MEDS ORDERED: MEPERIDINE HCL/PF INJ 25 MG/1 ML DISP.SYRIN IV PRN (12:27)
[2018-12-10] MEDS ORDERED: DIPHENHYDRAMINE HCL 50 MG/ML VIAL IV PRN (12:27)
[2018-12-10] MEDS ORDERED: OXYCODONE-ACETAMINOPHEN 5-325 MG TABLET PO PRN ×3 (12:27→14:54)
[2018-12-10] MEDS ORDERED: FENTANYL CITRATE INJ/PF 100 MCG/2 ML AMPUL IV PRN ×3 (12:27)
[2018-12-10] MEDS ORDERED: MORPHINE SULFATE 10 MG/ML INJ IV PRN ×2 (12:27→14:55)
[2018-12-10] MEDS ORDERED: ONDANSETRON HCL INJ/PF 4 MG/2 ML SDV IV PRN (12:27)
[2018-12-10] MEDS ORDERED: ESTROGENS,CONJUGATED 0.625 MG/1 GM 30 GM TUBE PV PRN (14:00)
[2018-12-10] MEDS ORDERED: RINGERS SOLUTION,LACTATED 1,000 ML IV PRN (14:54)
[2018-12-10] MEDS ORDERED: IBUPROFEN 800 MG TABLET PO PRN (14:55)
--- NOTE | 2018-12-10 15:40 | OPERATIVE REPORT E ---
Operative Report NAME: SHAUN RAI : 1950 AGE: 68Y DATE OF SURGERY: 12/10/2018 ROOM: 228 PREOPERATIVE DIAGNOSIS: Vaginal prolapse. POSTOPERATIVE DIAGNOSIS: Vaginal prolapse. OPERATION: Uterosacral suspension with anterior and posterior repair. SURGEON: TATIANNA PARDO M.D. FUNDRAISING CONSULTANT: Michel Lindquist M.D. ANESTHESIA: Micha Benavidez M.D. FINDINGS: Grade 3 vaginal prolapse. COMPLICATIONS: None. ESTIMATED BLOOD LOSS: 50 mL. SPECIMENS REMOVED: None. PROCEDURE IN DETAIL: The patient was taken to the operating room, prepared and draped in a normal sterile fashion in the dorsal lithotomy position. Under sterile conditions a Cordero catheter was placed to gravity, and a weighted speculum was placed in the posterior vagina. The anterior vaginal mucosa was noted and prepped with Betadine. The vaginal mucosa was grasped just beneath the urethra approximately 0.5 cm. The second Allis was placed at the vaginal cuff apex. The mucosa was then undermined and injected with lidocaine 1% with epinephrine along the length of the defect. The defect was then scored using a 15 blade, and the mucosa was undermined and dissected away from the uterovesical fascia bilaterally until the vesicoureteral fascia was easily 2.5 cm deep. Five support sutures were placed with 2-0 Vicryl in a bridge-type fashion underneath the uterovesical fascia. The extra mucosa was trimmed and the skin was closed with 2-0 Vicryl once more. Attention was then turned to the posterior repair, and the posterior vaginal mucosa was located and grasped with 2 Allis clamps in a similar fashion. The posterior vaginal mucosa was injected again with lidocaine 1% with epinephrine and was scored once more with a 15 blade in the midline and dissected away from the mucosa using Metzenbaums and blunt dissection carefully. Once the mucosa was dissected approximately 2.5 to 3 cm deep, attention was turned to the uterosacral suspension, and the uterosacral ligament was palpated on the patient's right, noting the ischial spine, and then coming slightly medial and inferior to locate the uterosacral ligament. An anchored loop stitch was then deployed onto this ligament and tagged with a hemostat. The rest of the posterior repair was completed by placing again 5 interrupted sutures of 2-0 Vicryl, bridging the defect, and the mucosa was then trimmed. The uterosacral sutures were then threaded through the posterior mucosa apex, and these were tied down securely onto the uterosacral ligament, and good support was noted. The mucosa of the posterior repair was then closed using a 2-0 Vicryl runner. The patient tolerated the procedure well. Sponge, lap, and needle counts were correct x2, and the patient was taken to recovery in stable condition. DICTATING PHYSICIAN: TATIANNA PARDO M.D. [id number] PHY#: [id number] ID: [id number] JOB#: [id number] ACCT: [id number] cc:TATIANNA PARDO M.D. >
[2018-12-10] MEDS: KETOROLAC TROMETHAMINE INJ/PF 30 MG/1 ML SDV IV SCH (21:11)
[2018-12-11 05:11] LABS: HEMATOCRIT 34.6 % (36.0-47.0); HEMOGLOBIN 11.8 g/dL (12.0-15.5); MEAN CORPUSCULAR HEMOGLOBIN 27.1 pg (27.0-33.4); MEAN CORPUSCULAR VOLUME 80 fl (80-97); PLATELET COUNT 240 10^3/uL (150-450); RED BLOOD COUNT 4.35 10^6/uL (3.72-5.28); RED CELL DISTRIBUTION WIDTH 15.2 % (11.5-14.0); WHITE BLOOD COUNT 10.2 10^3/uL (4.0-10.5)
[2018-12-11] MEDS: KETOROLAC TROMETHAMINE INJ/PF 30 MG/1 ML SDV IV SCH (05:21)
[2018-12-11] MEDS ORDERED: ESTROGENS,CONJUGATED 0.625 MG/1 GM 30 GM TUBE PV PRN (07:20)
--- NOTE | 2018-12-11 08:00 | PDOC DISCHARGE SUMMARY ---
General - Admit/Disc Date/PCP Admission Date/Primary Care Provider: 12/10/18 09:56 BERE WU III, MD Discharge Date: 12/11/18 - Discharge Diagnosis (1) Pelvic pain Is this a current diagnosis for this admission?: Yes (2) Uterovaginal prolapse Is this a current diagnosis for this admission?: Yes - Additional Information Resuscitation Status: Full Code Discharge Diet: As Tolerated Discharge Activity: Balance Activity w/Rest, No Lifting Over 10 Pounds, No Lifting/Push/Pulling, Pelvic Rest, No tub bath Home Medications: Losartan/Hydrochlorothiazide [Hyzaar 100-12.5 Tablet] 1 each PO DAILY 07/09/13 Ranitidine HCl 150 mg PO BID PRN 11/21/16 Docusate Sodium [Colace 100 mg Capsule] 100 mg PO PRN PRN 12/10/18 Sertraline HCl [Zoloft 50 mg Tablet] 50 mg PO DAILY 12/10/18 History of Present Illness History of Present Illness: SHAUN RAI is a 68 year old female Hospital Course Hospital Course: underwent USS and Anterior Posterior repair without complication. Physical Exam - Physical Exam Vital Signs: Temp Pulse Resp BP Pulse Ox 97.5 F 68 16 133/59 H 99 12/11/18 03:07 12/11/18 03:07 12/11/18 03:07 12/11/18 03:07 12/11/18 03:07 Intake & Output 12/10/18 12/11/18 12/12/18 06:59 06:59 06:59 Intake Total 1500 Output Total 1880 Balance -380 Weight 72.7 kg General appearance: PRESENT: no acute distress - abdomen soft/nontender. nondistended Result Laboratory Results: 12/11/18 04:57 12/10/18 10:24 12/10/18 12/11/18 10:24 04:57 WBC 10.2 RBC 4.35 Hgb 11.8 L Hct 34.6 L MCV 80 MCH 27.1 MCHC 34.0 RDW 15.2 H Plt Count 240 Potassium 3.8 Plan Discharge Plan: discharge home with follow up as scheduled with Dr. Smith in 2 wks. us4e premarin cream as directed. Time Spent: Less than 30 Minutes Acute Heart Failure - Is this a Heart Failure Patient?: No
[2018-12-11 08:51] VITALS: BP 133/80
== END 2018-12-11 09:16 | disposition home or self-care (01) | DRG 748 ==
LOC: INOR 09:56 → 2S 14:45
PROVIDERS: ADMIT Obstetrics & Gynecology; ATTEND Obstetrics & Gynecology
PROC: 0JQC0ZZ Repair Pelvic Region Subcutaneous Tissue and Fascia, Open Approach (ICD-10-PCS; principal; 2018-12-10 12:00)
DX: N81.3 Complete uterovaginal prolapse (principal)
CPT/HCPCS: 36415; 81001; 84132; 85027; J0330; J0690; J1100; J1170; J1885; J2250; J2370; J2405; J2704; J3010; J3490; J7120

== ENCOUNTER 2019-04-20 22:10 | Emergency (ER) | payer MEDICARE, MEDICAID ==
--- NOTE | 2019-04-20 23:14 | ER Document Report ---
ED Medical Screen (RME) - General Chief Complaint: Vaginal Bleeding Stated Complaint: VAGINAL BLEEDING Time Seen by Provider: 04/20/19 23:09 Primary Care Provider: BERE WU III, MD [Primary Care Provider] - Follow up as needed Mode of Arrival: Ambulatory Information source: Patient Notes: Patient is a 60-year-old female presenting to the emergency department chief complaint of vaginal bleeding. Patient reports bleeding started approximately 2 hours prior to arrival. She reports it is a heavy flow. She reports she has had a hysterectomy in the past. She also reports very bothersome hemorrhoids, she states that this is definitely not a bleeding hemorrhoid she can tell that the blood is coming from the vaginal canal. Patient denies any passage of clot s, syncope or any other symptoms. Exam deferred to patient is in back. Patient is alert, oriented and answering all questions properly. She denies any abdominal pain. I have greeted and performed a rapid initial assessment of this patient. A comprehensive ED assessment and evaluation of the patient, analysis of test results and completion of the medical decision making process will be conducted by additional ED providers. I have specifically instructed the patient or family members with the patient to immediately return to any nursing staff should anything change in the patient's condition or with their chief complaint. This medical record was dictated with voice recognizing software. There may be grammatical, syntax errors that are unintended. TRAVEL OUTSIDE OF THE [place] IN LAST 30 DAYS: No - Related Data Allergies/Adverse Reactions: amlodipine besylate [From Lotrel] Allergy (Verified 01/21/17 09:41) benazepril HCl [From Lotrel] Allergy (Verified 01/21/17 09:41) cough Home Medications: losartan, zantac, 2 kinds stool softner Past Medical History - Social History Frequency of alcohol use: None Drug Abuse: None - Past Medical History Cardiac Medical History: Reports: Hx Hypertension Denies: Hx Atrial Fibrillation, Hx Congestive Heart Failure, Hx Coronary Artery Disease, Hx Heart Attack, Hx Hypercholesterolemia, Hx Peripheral Vascular Disease, Hx Heart Murmur Pulmonary Medical History: Denies: Hx Asthma, Hx Bronchitis, Hx COPD, Hx Pneumonia Neurological Medical History: Denies: Hx Cerebrovascular Accident, Hx Seizures GI Medical History: Reports: Hx Gastroesophageal Reflux Disease. Denies: Hx Crohn's Disease, Hx Hiatal Hernia, Hx Irritable Bowel, Hx Liver Failure, Hx Pancreatitis, Hx Ulcer Musculoskeltal Medical History: Reports Hx Arthritis, Denies Hx Fibromyalgia, Denies Hx Muscular Dystrophy Traumatic Medical History: Denies: Hx Fractures Past Surgical History: Reports: Hx Hysterectomy. Denies: Hx Appendectomy, Hx Bowel Surgery, Hx Section, Hx Cholecystectomy, Hx Colostomy, Hx Coronary Artery Bypass Graft, Hx Gastric Bypass Surgery, Hx Herniorrhaphy, Hx Mastectomy, Hx Pacemaker, Hx Tonsillectomy, Hx Tubal Ligation - Immunizations Hx Diphtheria, Pertussis, Tetanus Vaccination: No Physical Exam - Vital signs Vitals: Temp Pulse Resp BP Pulse Ox 98.2 F 83 20 162/105 H 99 04/20/19 22:43 04/20/19 22:43 04/20/19 22:43 04/20/19 22:43 04/20/19 22:43 Course - Vital Signs Vital signs: Temp Pulse Resp BP Pulse Ox 98.2 F 83 20 162/105 H 99 04/20/19 22:43 04/20/19 22:43 04/20/19 22:43 04/20/19 22:43 04/20/19 22:43 Doctor's Discharge - Discharge Referrals: BERE WU III, MD [Primary Care Provider] - Follow up as needed
[2019-04-20 23:29] LABS: ABSOLUTE EOSINOPHILS # (AUTO) 0.2 10^3/uL (0.0-0.6); ABSOLUTE LYMPHOCYTES (AUTO) 3.1 10^3/uL (0.5-4.7); ABSOLUTE MONOCYTES (AUTO) 0.9 10^3/uL (0.1-1.4); ABSOLUTE NEUT (AUTO) 5.5 10^3/uL (1.7-8.2); BASOPHILS % (AUTO) 0.3 % (0-2); EOSINOPHILS % (AUTO) 2.3 % (0-6); HEMATOCRIT 41.4 % (36.0-47.0); HEMOGLOBIN 14.2 g/dL (12.0-15.5); LYMPHOCYTES % (AUTO) 31.7 % (13-45); MEAN CORPUSCULAR HEMOGLOBIN 27.9 pg (27.0-33.4); MEAN CORPUSCULAR HGB CONC 34.3 g/dL (32.0-36.0); MEAN CORPUSCULAR VOLUME 81 fl (80-97); PLATELET COUNT 329 10^3/uL (150-450); RED BLOOD COUNT 5.09 10^6/uL (3.72-5.28); RED CELL DISTRIBUTION WIDTH 13.6 % (11.5-14.0); SEGMENTED NEUTROPHILS % (AUTO) 56.7 % (42-78); TOTAL CELLS COUNTED % (AUTO) 100 %; WHITE BLOOD COUNT 9.6 10^3/uL (4.0-10.5)
[2019-04-20 23:33] LABS: APPEARANCE,URINE CLEAR; BILIRUBIN,URINE NEGATIVE (NEGATIVE); COLOR,URINE STRAW; GLUCOSE, URINE NEGATIVE (NEGATIVE); KETONES,URINE NEGATIVE (NEGATIVE); LEUKOCYTE ESTERASE,URINE NEGATIVE (NEGATIVE); NITRITE,URINE NEGATIVE (NEGATIVE); PROTEIN,URINE NEGATIVE (NEGATIVE); URINE SPECIFIC GRAVITY 1.012; UROBILINOGEN,URINE NEGATIVE mg/dL (<2.0)
[2019-04-20 23:46] LABS: ALBUMIN 4.5 g/dL (3.5-5.0); ALKALINE PHOSPHATASE 92 U/L (38-126); ANION GAP 10 (5-19); ASPARTATE AMINO TRANSFERASE 28 U/L (14-36); BILIRUBIN,DIRECT 0.1 mg/dL (0.0-0.4); BILIRUBIN,TOTAL 0.3 mg/dL (0.2-1.3); BLOOD UREA NITROGEN 21 mg/dL (7-20); CALCIUM 10.4 mg/dL (8.4-10.2); CARBON DIOXIDE 28 mmol/L (22-30); CHLORIDE 104 mmol/L (98-107); GLUCOSE 114 mg/dL (75-110); POTASSIUM 3.9 mmol/L (3.6-5.0); TOTAL PROTEIN 7.7 g/dL (6.3-8.2)
--- NOTE | 2019-04-21 01:44 | ER Document Report ---
ED GI/ - General Chief Complaint: Vaginal Bleeding Stated Complaint: VAGINAL BLEEDING Time Seen by Provider: 04/20/19 23:09 Primary Care Provider: BERE WU III, MD [Primary Care Provider] - Follow up as needed Mode of Arrival: Ambulatory Notes: Patient is a 60-year-old female that comes emergency department for chief complaint of bleeding from the vaginal area that started just prior to arrival, she states initially the bleeding was heavier as well. She also reports some lower abdominal crampy sensation. She does have some lower back pain but she states she always has this. She denies nausea or vomiting, fever or chills, vaginal discharge, dysuria, or injury. She states she has had a total hysterectomy previously and she also had a bladder sling in November of this year. She also had a pelvic exam by MARKETING COMMUNICATION MANAGER within the past week and was told it was normal reportedly. TRAVEL OUTSIDE OF THE [place] IN LAST 30 DAYS: No - Related Data Allergies/Adverse Reactions: amlodipine besylate [From Lotrel] Allergy (Verified 01/21/17 09:41) benazepril HCl [From Lotrel] Allergy (Verified 01/21/17 09:41) cough Home Medications: losartan, zantac, 2 kinds stool softner Past Medical History - General Information source: Patient - Social History Smoking Status: Never Smoker Frequency of alcohol use: None Drug Abuse: None Lives with: Family Family History: Malignancy Patient has suicidal ideation: No Patient has homicidal ideation: No - Past Medical History Cardiac Medical History: Reports: Hx Hypertension Denies: Hx Atrial Fibrillation, Hx Congestive Heart Failure, Hx Coronary Artery Disease, Hx Heart Attack, Hx Hypercholesterolemia, Hx Peripheral Vascular Disease, Hx Heart Murmur Pulmonary Medical History: Denies: Hx Asthma, Hx Bronchitis, Hx COPD, Hx Pneumonia Neurological Medical History: Denies: Hx Cerebrovascular Accident, Hx Seizures GI Medical History: Reports: Hx Gastroesophageal Reflux Disease. Denies: Hx Crohn's Disease, Hx Hiatal Hernia, Hx Irritable Bowel, Hx Liver Failure, Hx Pancreatitis, Hx Ulcer Musculoskeletal Medical History: Reports Hx Arthritis, Denies Hx Fibromyalgia, Denies Hx Muscular Dystrophy Traumatic Medical History: Denies: Hx Fractures Past Surgical History: Reports: Hx Cholecystectomy, Hx Hysterectomy, Hx Tubal Ligation. Denies: Hx Appendectomy, Hx Bowel Surgery, Hx Section, Hx Colostomy, Hx Coronary Artery Bypass Graft, Hx Gastric Bypass Surgery, Hx Herniorrhaphy, Hx Mastectomy, Hx Pacemaker, Hx Tonsillectomy - Immunizations Hx Diphtheria, Pertussis, Tetanus Vaccination: Yes Review of Systems - Review of Systems Constitutional: No symptoms reported EENT: No symptoms reported Cardiovascular: No symptoms reported Respiratory: No symptoms reported Gastrointestinal: No symptoms reported Genitourinary: See HPI Female Genitourinary: See HPI Musculoskeletal: No symptoms reported Skin: No symptoms reported Hematologic/Lymphatic: No symptoms reported Neurological/Psychological: No symptoms reported Physical Exam - Vital signs Vitals: Temp Pulse Resp BP Pulse Ox 98.2 F 83 20 162/105 H 99 04/20/19 22:43 04/20/19 22:43 04/20/19 22:43 04/20/19 22:43 04/20/19 22:43 - Notes Notes: GENERAL: Alert, interacts well. No acute distress. HEAD: Normocephalic, atraumatic. EYES: Pupils equal, round, and reactive to light. Extraocular movements intact. ENT: Oral mucosa moist, tongue midline. Oropharynx unremarkable. Airway patent. LUNGS: Clear to auscultation bilaterally, no wheezes, rales, or rhonchi. No respiratory distress. HEART: Regular rate and rhythm. No murmur ABDOMEN: Soft, non-tender. Non-distended. Bowel sounds present in all 4 quadrants. GENITOURINARY: Deferred EXTREMITIES: Moves all 4 extremities spontaneously. No edema, normal radial and dorsalis pedis pulses bilaterally. No cyanosis. BACK: no cervical, thoracic, lumbar midline tenderness. No saddle anesthesia, normal distal neurovascular exam. Moves all extremities in full range of motion. NEUROLOGICAL: Alert and oriented x3. Normal speech. Cranial nerves II through XII grossly intact. PSYCH: Normal affect, normal mood. SKIN: Warm, dry, normal turgor. No rashes or lesions noted. Course - Re-evaluation Re-evalutation: Unremarkable physical exam with soft benign abdomen. I recommended pelvic exam to make sure she is not bleeding vaginally but she declined. She states she just had this done and after discussion she does not feel she is bleeding vaginally. I do agree, she has had a total hysterectomy, she has blood in her urine on testing, CBC and chemistry unremarkable with no concerning anemia. Vital signs unremarkable. Discussed options. Decision was made to proceed with CAT scan to make sure she does not have ureterolithiasis or other concerning abnormality. This was performed and shows a kidney cyst but is otherwise unremarkable. Provided her with her report, discussed importance of urology follow-up for additional management because of possible underlying cancer component, patient states she will follow closely. Discussed return precautions. Patient states appreciation and agreement. - Vital Signs Vital signs: Temp Pulse Resp BP Pulse Ox 97.4 F 73 16 150/72 H 98 04/21/19 03:23 04/21/19 03:23 04/21/19 03:23 04/21/19 03:23 04/21/19 03:23 - Laboratory Result Diagrams: 04/20/19 23:15 04/20/19 23:15 Laboratory results interpreted by me: 04/20/19 04/20/19 23:15 23:15 BUN 21 H Glucose 114 H Calcium 10.4 H Urine Blood MODERATE H Discharge - Discharge Clinical Impression: Hematuria Qualifiers: Hematuria type: unspecified type Qualified Code(s): R31.9 - Hematuria, unspecified Condition: Stable Disposition: HOME, SELF-CARE Additional Instructions: It appears that the bleeding is coming from your urinary tract. There is no stone or concerning finding noted on your evaluation, there is a cyst on the kidney and this could be the source of the bleeding but this is not certain. Follow-up with urology for additional evaluation and management of this closely to make sure this is not anything serious that needs intervention before this develops further. Return if you worsen including vomiting, evolving pain, or any other concerning or worsening symptoms. Referrals: BERE WU III, MD [Primary Care Provider] - Follow up as needed
--- NOTE | 2019-04-21 02:54 | RADIOLOGY REPORT (SQ) ---
EXAM: CT abdomen and pelvis without intravenous contrast CLINICAL DATA: 68-year-old female with hematuria and right flank pain and abdominal pain TECHNICAL DATA: Axial CT imaging of the abdomen and pelvis was performed. Sagittal and coronal reconstructed images were then performed. The CT study is performed according to ALARA (as low as reasonably achievable) or ALARA/IMAGE GENTLY, with automatic adjustment of mA and/or kV according to patient size. Performed on: 04/21/2019 at 2:07 AM Comparison: Prior CT abdomen and pelvis with contrast performed on 08/25/2013. FINDINGS: Lung bases: The lung bases are clear. Liver:The liver is normal in size and configuration. No focal hepatic abnormalities are appreciated on this unenhanced scan. Liver attenuation is within normal limits. Spleen:The spleen is normal is size, configuration and attenuation. No focal splenic abnormalities are appreciated on this unenhanced scan. Gallbladder and bile duct: The gallbladder is surgically absent. There is no biliary ductal dilatation. Pancreas: The pancreas is grossly normal in size and configuration. Adrenal Glands:The adrenal glands are normal in size and configuration. Kidneys:The kidneys are normal in size and configuration. There is no evidence of hydronephrosis. There is no evidence of nephrolithiasis. There is an approximately 3.9 x 3.0 cm cyst arising from the upper pole of the right kidney. Stomach:The stomach is grossly normal. There is no definite hiatal hernia. Bowel:The bowel gas pattern is non specific and non obstructive. There is scattered colonic diverticulosis. Appendix: The appendix is surgically absent. Free air:There is no evidence of free air. Free fluid: There is no evidence of free fluid. Vasculature: The aorta is normal in caliber and contour. The inferior vena cava is grossly unremarkable. Lymphadenopathy: No pathologic lymphadenopathy is identified. Bladder: The bladder is incompletely distended. Reproductive: The uterus appears to be surgically absent. Bones: No acute osseous abnormalities are identified. There are new vacuum disc changes at L2-L3. There are mild chronic degenerative changes of the lumbosacral junction. Soft tissues: No focal soft tissue abnormalities are identified. There is a tiny fat-containing ventral umbilical hernia. IMPRESSION: 1. Normal unenhanced CT scan of the abdomen and pelvis. There is no evidence of urinary tract calcification or urinary tract obstruction. There is an approximately 3.9 x 3.0 cm cyst arising from the upper pole of the right kidney. 2. Remote cholecystectomy, appendectomy and possibly hysterectomy. 3. Scattered colonic diverticulosis without evidence of diverticulitis.
[2019-04-21 03:24] VITALS: BP 150/72
== END 2019-04-21 03:24 | disposition home or self-care (01) ==
LOC: ER 22:10
DX: R31.9 Hematuria, unspecified (principal); Z90.710 Acquired absence of both cervix and uterus; I10 Essential (primary) hypertension
CPT/HCPCS: 36415; 74176; 80053; 81001; 85025; 99284

== ENCOUNTER 2019-11-19 07:57 | Day surgery (SDC) | payer MEDICARE, MEDICAID ==
[2019-11-15 09:47] LABS: ABSOLUTE EOSINOPHILS # (AUTO) 0.1 10^3/uL (0.0-0.6); ABSOLUTE MONOCYTES (AUTO) 0.4 10^3/uL (0.1-1.4); ABSOLUTE NEUT (AUTO) 3.2 10^3/uL (1.7-8.2); BASOPHILS % (AUTO) 0.4 % (0-2); EOSINOPHILS % (AUTO) 1.6 % (0-6); HEMATOCRIT 38.6 % (36.0-47.0); HEMOGLOBIN 13.4 g/dL (12.0-15.5); LYMPHOCYTES % (AUTO) 34.6 % (13-45); MEAN CORPUSCULAR HEMOGLOBIN 27.6 pg (27.0-33.4); MEAN CORPUSCULAR HGB CONC 34.7 g/dL (32.0-36.0); MEAN CORPUSCULAR VOLUME 79 fl (80-97); MONOCYTES % (AUTO) 6.6 % (3-13); PLATELET COUNT 302 10^3/uL (150-450); RED BLOOD COUNT 4.87 10^6/uL (3.72-5.28); RED CELL DISTRIBUTION WIDTH 14.1 % (11.5-14.0); SEGMENTED NEUTROPHILS % (AUTO) 56.8 % (42-78); TOTAL CELLS COUNTED % (AUTO) 100 %; WHITE BLOOD COUNT 5.7 10^3/uL (4.0-10.5)
[2019-11-15 10:20] LABS: BLOOD UREA NITROGEN 14 mg/dL (7-20); CALCIUM 9.5 mg/dL (8.4-10.2); CARBON DIOXIDE 30 mmol/L (22-30); CHLORIDE 104 mmol/L (98-107); GLUCOSE 125 mg/dL (75-110)
[2019-11-15 10:23] LABS: ANION GAP 3 (5-19)
--- NOTE | 2019-11-16 00:28 | EKG REPORT ---
SEVERITY:- OTHERWISE NORMAL ECG - SINUS RHYTHM BORDERLINE LEFT AXIS DEVIATION : Confirmed by: Juan M Day 16-Nov-2019 00:27:47
[~2019-11-19 07:57] MED LIST changes: +ACETAMINOPHEN 325 MG TABLET ONE; +ACETAMINOPHEN 325 MG TABLET PO PRN; -CEFAZOLIN 1 GM/D5W RTU 1 GM/50 ML RTUPB IV PRN; +DEXAMETHASONE SOD PHOSPHATE INJ 4 MG/1 ML VIAL ONE; +FENTANYL CITRATE INJ/PF 100 MCG/2 ML AMPUL ONE; +IBUPROFEN 800 MG in NORMAL SALINE 250 ML IV PRN; +KETOROLAC TROMETHAMINE 60 MG/2 ML SDV ONE; +METRONIDAZOLE 500 MG/NS RTU 500 MG/100 ML RTUPB IV ONE; +METRONIDAZOLE 500 MG/NS RTU 500 MG/100 ML RTUPB IV PRN; +MIDAZOLAM 2 MG/2 ML INJ ONE; +ONDANSETRON HCL INJ/PF 4 MG/2 ML SDV ONE; +PROPOFOL INJ 200 MG/20 ML VIAL IV ONE
[2019-11-19] MEDS ORDERED: LIDOCAINE 2% JELLY 30 ML TUBE ONE (09:24)
[2019-11-19] MEDS ORDERED: BUPIVACAINE INJ/PF LIPOSOME/PF 266 MG/20 ML SDV ONE (09:25)
[2019-11-19] MEDS ORDERED: BACITRACIN ZINC OINTMENT 15 GM ONE (10:20)
[2019-11-19] MEDS ORDERED: ONDANSETRON HCL INJ/PF 4 MG/2 ML SDV IV PRN (10:51)
[2019-11-19] MEDS ORDERED: OXYCODONE-ACETAMINOPHEN 5-325 MG TABLET PO PRN ×2 (10:51)
[2019-11-19] MEDS ORDERED: MORPHINE SULFATE 10 MG/ML INJ IV PRN (10:51)
[2019-11-19] MEDS ORDERED: FENTANYL CITRATE INJ/PF 100 MCG/2 ML AMPUL IV PRN ×3 (10:51)
[2019-11-19] MEDS ORDERED: DIPHENHYDRAMINE HCL 50 MG/ML VIAL IV PRN (10:51)
[2019-11-19] MEDS ORDERED: PROMETHAZINE HCL INJ 25 MG/1 ML VIAL IV PRN ×2 (10:51)
[2019-11-19] MEDS ORDERED: MEPERIDINE HCL/PF INJ 25 MG/1 ML DISP.SYRIN IV PRN (10:51)
[2019-11-19] MEDS ORDERED: SUCCINYLCHOLINE CHLORIDE INJ 200 MG/10 ML VIAL ONE (10:53)
[2019-11-19] MEDS ORDERED: ROCURONIUM BROMIDE INJ 50 MG/5 ML VIAL IV ONE (10:53)
[2019-11-19] MEDS ORDERED: HYDROCODONE/ACETAMINOPHEN 10-325 MG TABLET PO PRN (11:26)
--- NOTE | 2019-11-19 11:26 | Discharge Summary ---
Discharge Summary (SDC) - Discharge Final Diagnosis: Large, symptomatic internal and external hemorrhoids Date of Surgery: 11/19/19 Discharge Date: 11/19/19 Condition: Stable Treatment or Instructions: Discharge home. Diet as tolerated. Activity: Nonstrenuous. Warm soapy sitz bath twice daily and after bowel movements. [place] 10/325 mg p.o. every 6 hours as needed for pain. Ibuprofen 800 mg p.o. 3 times daily with meals. Fiber supplement twice daily. Stool softeners twice per day, as needed. Prescriptions: Ibuprofen [Motrin 800 mg Tablet] 800 mg PO MEALS #42 tablet Hydrocodone/Acetaminophen [[place] 10-325 mg Tablet] 1 tab PO Q6HP PRN #28 tablet PRN Reason: Referrals: BRYCE GILES,BERE Dougherty MD [Primary Care Provider] - Discharge Diet: As Tolerated Respiratory Treatments at Home: Deep Breathing/Coughing, Incentive Spirometer Discharge Activity: Activity As Tolerated, Balance Activity w/Rest Home Care Assistance: None Needed Report the Following to Your Physician Immediately: Shortness of Breath, Nausea, Vomiting, Increase in Pain, Fever over 101 Degrees, Unusual Bleeding, Redness, Swelling, Warmth
--- NOTE | 2019-11-19 12:02 | Operative Report ---
Nonrecallable Operative Report DATE OF SURGERY: 11/19/19 PREOPERATIVE DIAGNOSIS: Symptomatic internal and external hemorrhoids POSTOPERATIVE DIAGNOSIS: Same as above OPERATION: 1. 2 column hemorrhoidectomy (right anterior and right posterior positions). 2. Rubber band ligation of internal hemorrhoids x2 in the left lateral column. SURGEON: NICKO HALLMAN CAR PARKER: CARLINE VARELA ANESTHESIA: GA TISSUE REMOVED OR ALTERED: Right anterior and right posterior hemorrhoid columns. COMPLICATIONS: None apparent ESTIMATED BLOOD LOSS: Minimal PROCEDURE: Procedure in detail: After informed consent was obtained, the patient was brought to the operating room and laid in the prone jackknife position. The anus and rectum were prepped and draped in a normal sterile fashion. An anal block was created using Exparel. A Hill-Amaro retractor was inserted into the rectum. The hemorrhoid columns in the right anterior and right posterior positions were the largest. There was some internal hemorrhoids present in the left lateral position. The right anterior and right posterior columns were excised using electrocautery from internal, to external. This was done using Bovie. The resultant defect was closed using 3-0 chromic suture. Great care was taken to reapproximate mucosa to mucosa, anoderm to anoderm, and skin to skin. Once this was completed for the right anterior and right posterior columns, the left lateral position was inspected. There was still enlarged internal hemorrhoids in this position, however there were not significant external hemorrhoids. Secondary to this, the rubber band ligation device was used to ligate internal hemorrhoids x2 in the left lateral position. After this was completed, the procedure was concluded. All sponge, instrument, and needle counts were correct x2. The anus easily admitted 2 fingers at the end of the procedure. Condition: Stable. Carline Varela PA-C was scrubbed and present the entirety of the procedure. She assisted with all portions of the procedure including removal of the hemorrhoids, closure of the defect, placement of the rubber bands, placement of the dressing.
[2019-11-19 14:22] VITALS: BP 139/78
== END 2019-11-19 13:35 | disposition home or self-care (01) ==
LOC: OROUT 07:57
PROVIDERS: ATTEND Surgery
DX: K64.4 Residual hemorrhoidal skin tags (principal); K64.8 Other hemorrhoids; Z03.818 Encounter for observation for suspected exposure to other biological agents ruled out; I10 Essential (primary) hypertension; N81.4 Uterovaginal prolapse, unspecified; Z88.8 Allergy status to other drugs, medicaments and biological substances; Z79.899 Other long term (current) drug therapy
CPT/HCPCS: 93005; 36415 ×2; 84132; 85025; 80048; 88304 ×2; 93010; 00902; 46260; U0003; A9270 ×2; J2250; J3490 ×2; J1100; J3010; J0330; J2405; J7050; J2704; C9290; J1741; C9803; 87635; 902; J1885

== ENCOUNTER 2020-04-13 06:01 | Emergency (ER) | payer MEDICARE, MEDICAID ==
[2020-04-13] MEDS ORDERED: VALACYCLOVIR HCL 500 MG TABLET PO ONE (07:02)
[2020-04-13] MEDS ORDERED: KETOROLAC TROMETHAMINE INJ/PF 30 MG/1 ML SDV IV ONE (07:12)
--- NOTE | 2020-04-13 08:16 | ER Document Report ---
Entered by ANDREW LOCKE SCRIBE 04/13/20 0647 Acting as scribe for:DIVYA MONAE MD ED General - General Chief Complaint: Nausea/Vomiting Stated Complaint: NAUSEA,VOMITING Time Seen by Provider: 04/13/20 06:45 Primary Care Provider: ELIZA SUH DO [ACTIVE STAFF] - Follow up as needed Mode of Arrival: Ambulatory Information source: Patient Notes: This 69 year old female patient presents to the emergency department today with complaints of nausea and vomiting. This patient began having pain in the left forehead last and she went to [facility] where she was put on amoxicillin 875 twice daily for a "sinus infection" despite having no nasal congestion or discharge. Patient reports that on Friday she noticed redness, s welling, and increased pain to the left forehead, face, and eye so she went back to [facility] the next day and she was then put on Augmentin 875 BID and Cipro eye drops. Patient denies any nasal congestion, nasal discharge, cough, or ear pain. Patient mentions that she has seen Dr. Suh (ophthalmology) in the past, last time being approximately 2 years ago. TRAVEL OUTSIDE OF THE [place] IN LAST 30 DAYS: No - Related Data Allergies/Adverse Reactions: amlodipine besylate [From Lotrel] Allergy (Severe, Verified 11/15/19 13:15) ? benazepril HCl [From Lotrel] Allergy (Severe, Verified 11/15/19 13:15) cough Past Medical History - General Information source: Patient - Social History Smoking Status: Never Smoker Cigarette use (# per day): No Chew tobacco use (# tins/day): No Frequency of alcohol use: None Drug Abuse: None Lives with: Family Family History: Reviewed & Not Pertinent, Malignancy Patient has homicidal ideation: No - Past Medical History Cardiac Medical History: Reports: Hx Hypertension GI Medical History: Reports: Hx Gastroesophageal Reflux Disease Musculoskeletal Medical History: Reports Hx Arthritis Past Surgical History: Reports: Hx Cholecystectomy, Hx Hysterectomy, Hx Tubal Ligation - Immunizations Hx Diphtheria, Pertussis, Tetanus Vaccination: Yes Review of Systems - Review of Systems Constitutional: No symptoms reported EENT: See HPI, Eye pain, Eye discharge, Tearing Cardiovascular: No symptoms reported Respiratory: No symptoms reported Gastrointestinal: See HPI, Nausea, Vomiting Genitourinary: No symptoms reported Female Genitourinary: No symptoms reported Musculoskeletal: No symptoms reported Skin: No symptoms reported Hematologic/Lymphatic: No symptoms reported Neurological/Psychological: See HPI, Headaches -: Yes All other systems reviewed and negative Physical Exam - Vital signs Vitals: Temp Pulse Resp BP Pulse Ox 98.3 F 86 18 154/77 H 97 04/13/20 06:02 04/13/20 06:02 04/13/20 06:02 04/13/20 06:02 04/13/20 06:02 - Notes Notes: Physical Exam: General: Alert, appears well. HEENT: Normocephalic. Atraumatic. PERRL. Extraocular movements intact. Oropharynx clear. There is a tender preauricular node on the left. There are erythematous lesions that are raised to the medial left forehead and just left of midline. There is erythema on the nose without vesicles, left side of the nose is tender, right side of the nose is not tender. The left forehead and face is hypersensitive. Left conjunctival edema and injection. Neck: Supple. Non-tender. Respiratory: No respiratory distress. Clear and equal breath sounds bilaterally. Cardiovascular: Regular rate and rhythm. Abdominal: Normal Inspection. Non-tender. No distension. Normal Bowel Sounds. Back: No gross abnormalities. Extremities: Moves all four extremities. Upper extremities: Normal inspection. Normal ROM. Lower extremities: Normal inspection. No edema. Normal ROM. Neurological: Normal cognition. AAOx4. Normal speech. Psychological: Normal affect. Normal Mood. Skin: Warm. Dry. Normal color. Course - Vital Signs Vital signs: Temp Pulse Resp BP Pulse Ox 98.3 F 86 18 154/77 H 97 04/13/20 06:02 04/13/20 06:02 04/13/20 06:02 04/13/20 06:02 04/13/20 06:02 - Consults Dr. Suh Time consulted: 08:15 Consulted provider: follow-up in office - Call to schedule appointment today Discharge - Discharge Clinical Impression: Herpes zoster ophthalmicus of left eye Condition: Stable Disposition: HOME, SELF-CARE Additional Instructions: Ophthalmic Zoster (Shingles of the Eye) You have shingles infection involving the eye, called ophthalmic zoster. Shingles is caused by the chicken pox virus. The virus has been surviving dormant in a nerve cell since you had chicken pox years ago. The virus has spread down a nerve root to reach the eye and skin around it. This requires careful treatment. You are contagious. You can give children chicken pox. However, you can't give anybody shingles, because this problem only occurs to people who've already had chicken pox. Ophthalmic zoster is treated with antiviral eyedrops. Often antiviral pill s (such as acyclovir or famciclovir) are also used. The infection should be followed carefully by an facility designer (medical reimbursement specialist). Antihistamines such as Benadryl may be helpful for itching skin. Do not use any other eyedrops unless approved by your doctor. In particular, cortisone-type eyedrops are dangerous, because they allow the virus to grow. Take the valacyclovir every 8 hours as prescribed for the next week. Follow-up with Dr. Suh in his office at 10 AM this morning. Prescriptions: Valtrex 1000mg Tab 1 tab PO TID #20 Referrals: ELIZA SUH DO [ACTIVE STAFF] - 04/13/20 8:36 am I personally performed the services described in the documentation, reviewed and edited the documentation which was dictated to the scribe in my presence, and it accurately records my words and actions.
[2020-04-13 08:56] VITALS: BP 160/68
== END 2020-04-13 09:02 | disposition home or self-care (01) ==
LOC: ER 06:01
DX: B02.30 Zoster ocular disease, unspecified (principal); R11.2 Nausea with vomiting, unspecified; R51.9 Headache, unspecified; Z88.8 Allergy status to other drugs, medicaments and biological substances; I10 Essential (primary) hypertension
CPT/HCPCS: 99284; 96374; J1885; A9270